=== PATIENT | female | born 1960 | race American Indian/Alaskan Native ===

== ENCOUNTER 2021-10-14 12:02 | Observation (INO) | payer OTHER ==
--- NOTE | 2021-10-14 16:02 | Event Note ---
ED Screening Note Date of service: 10/14/21 Time: 16:00 ED Screening Note: 61-year-old -Faroese female with end-stage renal disease states that she missed dialysis 3 times. Patient states she was exposed to Covid and was not allowed to get dialysis eyes. Patient states that she is vaccinated. Patient denies any chest pain no shortness of breath a slight cough no fever no chills no body aches nausea or vomiting. This initial assessment/diagnostic orders/clinical plan/treatment(s) is/are subject to change based on patients health status, clinical progression and re- assessment by fellow clinical providers in the ED. Further treatment and workup at subsequent clinical providers discretion. Patient/guardian urged not to elope from the ED as their condition may be serious if not clinically assessed and managed. Initial orders include: CBC CMP
[2021-10-14 16:06] LABS: Basophils # (Auto) 0.1 K/mm3 (0.0-0.1); Basophils % (Auto) 1.2 % (0.0-1.8); Eosinophils # (Auto) 0.2 K/mm3 (0.0-0.4); Eosinophils % (Auto) 2.9 % (0.0-4.3); Hematocrit 32.1 % (30.3-42.9); Hemoglobin 10.2 gm/dl (10.1-14.3); Lymphocytes % (Auto) 31.7 % (13.4-35.0); Mean Corpuscular HGB Conc 32 % (30-34); Mean Corpuscular Volume 98 fl (79-97); Monocytes # (Auto) 0.6 K/mm3 (0.0-0.8); Monocytes % (Auto) 10.4 % (0.0-7.3); Platelet Count 327 K/mm3 (140-440); Red Blood Count 3.29 M/mm3 (3.65-5.03)
[2021-10-14 16:17] LABS: Calcium 9.3 mg/dL (8.4-10.2)
[2021-10-14] MEDS ORDERED: INSULIN REGULAR, HUMAN 100 UNITS/1 ML IV ONE (17:24)
[2021-10-14] MEDS ORDERED: DEXTROSE 50% IN WATER (25GM) 50 ML SYRINGE IV ONE (17:25)
--- NOTE | 2021-10-14 17:32 | Emergency Department Report ---
HPI - General Chief Complaint: Weakness Time Seen by Provider: 10/14/21 15:21 - HPI HPI: 61-year-old female with history of hypertension, ESRD on HD M/W/F, HIV on antiretroviral therapy, and diabetes mellitus mellitus presents saying that she needs dialysis. The patient says that she has missed her last 3 dialysis sessions and her last hemodialysis was on Thursday of last week. She says she was exposed to her neighbor who tested positive for Covid and for this reason was told that she could not come into the dialysis clinic until she obtained a negative test. She says she has been unable to obtain a COVID-19 test. She denies any symptoms. She does say that since her last dialysis session she has had significantly increased lower extremity swelling. She denies any associated headache, visual change, fever, shortness of breath, chest pain, abdominal pain, nausea/vomiting, or any other complaints. She is fully vaccinated against COVID-19. ED Past Medical Hx - Past Medical History Previous Medical History?: Yes Hx Hypertension: Yes Hx Diabetes: Yes Hx Renal Disease: Yes (ESRD on HD M/W/) Hx HIV: Yes - Surgical History Additional Surgical History: LUE fistula ED Review of Systems ROS: Stated complaint: DIALYSIS Other details as noted in HPI Constitutional: denies: chills, fever Eyes: denies: eye pain, vision change ENT: denies: throat pain, congestion Respiratory: denies: cough, shortness of breath Cardiovascular: edema. denies: chest pain, palpitations Gastrointestinal: denies: abdominal pain, nausea, vomiting Genitourinary: denies: dysuria, frequency Musculoskeletal: denies: back pain, arthralgia Skin: denies: rash, lesions Neurological: denies: headache, weakness, numbness Psychiatric: denies: anxiety, depression Physical Exam - Physical Exam Vital Signs: Vital Signs 10/14/21 14:41 Temperature 98 F Pulse Rate 63 Respiratory 16 Rate Blood Pressure 164/61 [Left] O2 Sat by Pulse 100 Oximetry Physical Exam: GENERAL: Well developed and well nourished. No acute distress HEAD: Normocephalic. No obvious signs of trauma. ENT: Dry mucous membranes. EYES: Extraocular movements are intact. Pupils are equal round and reactive to light bilaterally NECK: Supple. Full ROM is intact. Trachea is midline. LUNGS: Nonlabored breathing. Equal chest rise bilaterally. Coarse breath sounds throughout. CARDIOVASCULAR: Regular rate and rhythm. No murmurs or rubs. VASCULAR: Cap refill < 2 seconds. Left upper extremity fistula with bruit/thrill. 2+ pitting edema of the right lower extremity. 1+ pitting edema of the left lower extremity. ABDOMEN: Abdomen is soft and nondistended. There is no significant tenderness, guarding or rebound. SKIN: Skin is warm and dry NEURO: Patient is awake, alert, and oriented. candle pourer II-XII grossly intact. No focal deficits. Normal motor and sensory exam throughout. Normal speech. MUSCULOSKELETAL: No obvious deformities. No significant tenderness. Normal ROM throughout. BACK/SPINE: No midline tenderness or step-offs of the C/T/L spine. No costover tebral angle tenderness. ED Course Vital Signs 10/14/21 14:41 Temperature 98 F Pulse Rate 63 Respiratory 16 Rate Blood Pressure 164/61 [Left] O2 Sat by Pulse 100 Oximetry ED Medical Decision Making - Lab Data Result diagrams: 10/14/21 15:40 10/14/21 15:40 Lab Results 10/14/21 10/14/21 10/14/21 Range/Units 15:40 15:40 15:40 WBC 6.2 (4.5-11.0) K/mm3 RBC 3.29 L (3.65-5.03) M/mm3 Hgb 10.2 (10.1-14.3) gm/dl Hct 32.1 (30.3-42.9) % MCV 98 H (79-97) fl MCH 31 (28-32) pg MCHC 32 (30-34) % RDW 25.0 H (13.2-15.2) % Plt Count 327 (140-440) K/mm3 Lymph % (Auto) 31.7 (13.4-35.0) % Mcintosh % (Auto) 10.4 H (0.0-7.3) % Eos % (Auto) 2.9 (0.0-4.3) % Baso % (Auto) 1.2 (0.0-1.8) % Lymph # (Auto) 2.0 (1.2-5.4) K/mm3 Mcintosh # (Auto) 0.6 (0.0-0.8) K/mm3 Eos # (Auto) 0.2 (0.0-0.4) K/mm3 Baso # (Auto) 0.1 (0.0-0.1) K/mm3 Seg Neutrophils % 53.8 (40.0-70.0) % Seg Neutrophils # 3.3 (1.8-7.7) K/mm3 PT (12.2-14.9) Sec. INR (0.87-1.13) APTT (24.2-36.6) Sec. Sodium 141 (137-145) mmol/L Potassium 5.9 H (3.6-5.0) mmol/L Chloride 105.2 (98-107) mmol/L Carbon Dioxide 23 (22-30) mmol/L Anion Gap 19 mmol/L BUN 62 H (7-17) mg/dL Creatinine 6.1 H (0.6-1.2) mg/dL Estimated GFR 8 ml/min BUN/Creatinine Ratio 10 % Glucose 95 (65-100) mg/dL Calcium 9.3 (8.4-10.2) mg/dL Magnesium 3.40 H (1.7-2.3) mg/dL 12// Range/Units Unknown WBC (4.5-11.0) K/mm3 RBC (3.65-5.03) M/mm3 Hgb (10.1-14.3) gm/dl Hct (30.3-42.9) % MCV (79-97) fl MCH (28-32) pg MCHC (30-34) % RDW (13.2-15.2) % Plt Count (140-440) K/mm3 Lymph % (Auto) (13.4-35.0) % Mcintosh % (Auto) (0.0-7.3) % Eos % (Auto) (0.0-4.3) % Baso % (Auto) (0.0-1.8) % Lymph # (Auto) (1.2-5.4) K/mm3 Mcintosh # (Auto) (0.0-0.8) K/mm3 Eos # (Auto) (0.0-0.4) K/mm3 Baso # (Auto) (0.0-0.1) K/mm3 Seg Neutrophils % (40.0-70.0) % Seg Neutrophils # (1.8-7.7) K/mm3 PT 13.9 (12.2-14.9) Sec. INR 0.96 (0.87-1.13) APTT 27.3 (24.2-36.6) Sec. Sodium (137-145) mmol/L Potassium (3.6-5.0) mmol/L Chloride (98-107) mmol/L Carbon Dioxide (22-30) mmol/L Anion Gap mmol/L BUN (7-17) mg/dL Creatinine (0.6-1.2) mg/dL Estimated GFR ml/min BUN/Creatinine Ratio % Glucose (65-100) mg/dL Calcium (8.4-10.2) mg/dL Magnesium (1.7-2.3) mg/dL - EKG Data -: EKG Interpreted by Me - EKG Data 10/14/21 18:40 Normal sinus rhythm. Normal axis. Normal intervals. No ectopy. No significant ST segment or T wave abnormalities. - Radiology Data Radiology results: report reviewed - Medical Decision Making 61-year-old female multiple medical comorbidities including ESRD on HD presents after 3 missed dialysis sessions. She reports lower extremity swelling. Her last dialysis was 6 days ago. She is afebrile with normal vital signs other than elevated blood pressure. Lungs are clear to auscultation but she does have lower extremity swelling. Labs were drawn in triage and reveal expectedly eleva ash creatinine of 6.1 with BUN of 62. However, there is hyperkalemia with a potassium of 5.9. There is no significant leukocytosis or anemia. Chest x-ray was performed and reveals no acute abnormalities. Given hyperkalemia in the setting of 3 missed dialysis sessions with volume overload, I have placed a call to [facility] immediately given that the patient needs urgent/emergent dialysis. In the meantime I have asked for an EKG stat and ordered treatment for hyperkalemia with calcium gluconate and 10 units of insulin with 1 amp of D50. At 5:37 PM I spoke with Dr. Romeo from [facility] regarding the patient and the case. She says that they do not have beds available and she recommends admitting the patient and managing the patient here at our facility. I have placed an emergent consult for nephrology. I spoke with Dr. Ibrahim of nephrology regarding the case. He agrees that the patient needs dialysis and will place orders. We will plan to meet the patient to medicine for further management. All this was discussed with the patient expressed understanding and agreement with the plan of care. Critical Care Time: Yes Critical care time in (mins) excluding proc time.: 35 Critical care attestation.: If time is entered above; I have spent that time in minutes in the direct care of this critically ill patient, excluding procedure time. Critical care time was spent in the evaluation/assessment, work-up, and ma nagement of end-stage renal disease with volume overload and hyperkalemia requiring administration of IV calcium as well as IV insulin, and consultation with specialist as well as urgent dialysis and frequent reevaluation and reassessment. ED Disposition Clinical Impression: ESRD (end stage renal disease) on dialysis, Hyperkalemia, Hypertension Disposition: 09 ADMITTED INPATIENT Is pt being admited?: Yes Condition: Serious
--- NOTE | 2021-10-14 17:45 | XRay Report ---
XR chest 1V ap INDICATION / CLINICAL INFORMATION: missed HD COMPARISON: 10/11/2012 FINDINGS: SUPPORT DEVICES: None. HEART / MEDIASTINUM: No significant abnormality. LUNGS / PLEURA: Lungs are clear. Costophrenic sulci are sharp. No pneumothorax. ADDITIONAL FINDINGS: No significant additional findings. IMPRESSION: 1. No acute findings. Signer Name: Mike Lino MD Signed: 10/14/2021 5:41 PM Workstation Name: [id number]
[2021-10-14 18:01] LABS: INR 0.96 (0.87-1.13)
[2021-10-14 18:02] LABS: Partial Thromboplastin Time 27.3 Sec. (24.2-36.6)
[2021-10-14] MEDS ORDERED: SODIUM CHLORIDE 0.9% 100 ML IV PRN (18:08)
[2021-10-14] MEDS ORDERED: EPOETIN ALFA-EPBX 10,000 UNIT/1 ML VIAL IV PRN (18:08)
--- NOTE | 2021-10-14 18:11 | Consultation ---
History of Present Illness - Reason for Consult Consult date: 11/14/21 end stage renal disease Requesting physician: VIVIANA BUCIO - History of Present Illness Patien was discharged before I could see her and evaluate her in person Medications and Allergies Allergies Allergy/AdvReac Type Severity Reaction Status Date / Time lisinopril Allergy Unknown Verified 10/14/21 14:41 Active Meds: Active Medications Calcium Gluconate 2,000 mg/ (Sodium Chloride) 120 mls @ 660 mls/hr IV ONCE ONE Stop: 10/14/21 18:34 Sodium Chloride (Nacl 0.9%) 100 mls @ 999 mls/hr IV ANETTE PRN PRN Reason: Hypotension Exam - Vital Signs Vital signs: Vital Signs Temp Pulse Resp BP Pulse Ox 98 F 63 16 164/61 100 10/14/21 14:41 10/14/21 14:41 10/14/21 14:41 10/14/21 14:41 10/14/21 14:41 Results - Lab Results 10/15/21 04:54 10/15/21 04:54 Most recent lab results Calcium 9.3 mg/dL (8.4-10.2) 10/14/21 15:40 Magnesium 3.40 mg/dL (1.7-2.3) H 10/14/21 15:40
[2021-10-14] MEDS ORDERED: CALCIUM GLUCONATE 2,000 MG in SODIUM CHLORIDE 0.9% 100 ML IV ONE (18:24)
[2021-10-14 19:13] LABS: Hepatitis C Virus Antibody Non-Reactive (NonReactive)
[2021-10-14 19:17] LABS: Hepatitis B Surface Antigen Nonreactive (Negative)
--- NOTE | 2021-10-14 21:46 | History and Physical Report ---
History of Present Illness Date of examination: 10/14/21 Date of admission: 10/14/2021 Chief complaint: Missed hemodialysis for 1 week History of present illness: 61-year-old female with history of hypertension, ESRD on HD M/W/F, HIV on antiretroviral therapy, and diabetes mellitus mellitus presents saying that she needs dialysis. The patient says that she has missed her last 3 dialysis sessions and her last hemodialysis was on Thursday of last week. She says she was exposed to her neighbor who tested positive for Covid and for this reason was told that she could not come into the dialysis clinic until she obtained a negative test. She says she has been unable to obtain a COVID-19 test. She denies any symptoms. She does say that since her last dialysis session she has had significantly increased lower extremity swelling. She denies any associated headache, visual change, fever, shortness of breath, chest pain, abdominal pain, nausea/vomiting, or any other complaints. She is fully vaccinated against COVID-19. - Past Medical History Previous Medical History?: Yes --Hypertension: Yes --Diabetes: Yes --Renal Disease: Yes (ESRD on HD M/W/) --HIV: Yes - Surgical History -- LUE fistula --Family history Htn -Social history --No smoking or alcohol Review of Systems ROS: Stated complaint: DIALYSIS Other details as noted in HPI Constitutional: denies: chills, fever Eyes: denies: eye pain, vision change ENT: denies: throat pain, congestion Respiratory: denies: cough, shortness of breath Cardiovascular: edema. denies: chest pain, palpitations Gastrointestinal: denies: abdominal pain, nausea, vomiting Genitourinary: denies: dysuria, frequency Musculoskeletal: denies: back pain, arthralgia Skin: denies: rash, lesions Neurological: denies: headache, weakness, numbness Psychiatric: denies: anxiety, depression Medications and Allergies Allergies Allergy/AdvReac Type Severity Reaction Status Date / Time lisinopril Allergy Unknown Verified 10/14/21 14:41 Active Meds: Active Medications Sodium Chloride (Nacl 0.9%) 100 mls @ 999 mls/hr IV ANETTE PRN PRN Reason: Hypotension Exam - Constitutional Vitals: Temp Pulse Resp BP Pulse Ox 98 F 63 16 164/61 100 10/14/21 14:41 10/14/21 14:41 10/14/21 14:41 10/14/21 14:41 10/14/21 14:41 General appearance: Present: no acute distress, well-nourished - EENT Eyes: Present: PERRL ENT: hearing intact, clear oral mucosa - Neck Neck: Present: supple, normal ROM - Respiratory Respiratory effort: normal Respiratory: bilateral: CTA - Cardiovascular Heart rate: 78 Rhythm: regular Heart Sounds: Present: S1 & S2. Absent: rub, click - Extremities Extremities: pulses symmetrical, No edema Peripheral Pulses: within normal limits - Abdominal General gastrointestinal: Present: soft, non-tender, non-distended, normal bowel sounds Female genitourinary: Present: normal - Integumentary Integumentary: Present: clear, warm, dry - Musculoskeletal Musculoskeletal: gait normal, strength equal bilaterally - Psychiatric Psychiatric: appropriate mood/affect, intact judgment & insight - Neurologic Neurologic: CNII-XII intact, moves all extremities Results - Labs CBC & Chem 7: 10/15/21 04:54 10/15/21 04:54 Labs: Laboratory Last Values WBC 6.2 K/mm3 (4.5-11.0) 10/14/21 15:40 RBC 3.29 M/mm3 (3.65-5.03) L 10/14/21 15:40 Hgb 10.2 gm/dl (10.1-14.3) 10/14/21 15:40 Hct 32.1 % (30.3-42.9) 10/14/21 15:40 MCV 98 fl (79-97) H 10/14/21 15:40 MCH 31 pg (28-32) 10/14/21 15:40 MCHC 32 % (30-34) 10/14/21 15:40 RDW 25.0 % (13.2-15.2) H 10/14/21 15:40 Plt Count 327 K/mm3 (140-440) 10/14/21 15:40 Lymph % (Auto) 31.7 % (13.4-35.0) 10/14/21 15:40 Bremer % (Auto) 10.4 % (0.0-7.3) H 10/14/21 15:40 Eos % (Auto) 2.9 % (0.0-4.3) 10/14/21 15:40 Baso % (Auto) 1.2 % (0.0-1.8) 10/14/21 15:40 Lymph # (Auto) 2.0 K/mm3 (1.2-5.4) 10/14/21 15:40 Bremer # (Auto) 0.6 K/mm3 (0.0-0.8) 10/14/21 15:40 Eos # (Auto) 0.2 K/mm3 (0.0-0.4) 10/14/21 15:40 Baso # (Auto) 0.1 K/mm3 (0.0-0.1) 10/14/21 15:40 Seg Neutrophils % 53.8 % (40.0-70.0) 10/14/21 15:40 Seg Neutrophils # 3.3 K/mm3 (1.8-7.7) 10/14/21 15:40 PT 13.9 Sec. (12.2-14.9) 10/14/21 Unknown INR 0.96 (0.87-1.13) 10/14/21 Unknown APTT 27.3 Sec. (24.2-36.6) 10/14/21 Unknown Sodium 141 mmol/L (137-145) 10/14/21 15:40 Potassium 5.9 mmol/L (3.6-5.0) H 10/14/21 15:40 Chloride 105.2 mmol/L (98-107) 10/14/21 15:40 Carbon Dioxide 23 mmol/L (22-30) 10/14/21 15:40 Anion Gap 19 mmol/L 10/14/21 15:40 BUN 62 mg/dL (7-17) H 10/14/21 15:40 Creatinine 6.1 mg/dL (0.6-1.2) H 10/14/21 15:40 Estimated GFR 8 ml/min 10/14/21 15:40 BUN/Creatinine Ratio 10 % 10/14/21 15:40 Glucose 95 mg/dL (65-100) 10/14/21 15:40 Calcium 9.3 mg/dL (8.4-10.2) 10/14/21 15:40 Magnesium 3.40 mg/dL (1.7-2.3) H 10/14/21 15:40 Hepatitis A IgM Ab Non-reactive (NonReactive) 10/14/21 18:34 Hep Bs Antigen Nonreactive (Negative) 10/14/21 18:34 Hep B Core IgM Ab Non-reactive (NonReactive) 10/14/21 18:34 Hepatitis C Antibody Non-reactive (NonReactive) 10/14/21 18:34 Short CBC 10/14/21 10/15/21 Range/Units 15:40 04:54 WBC 6.2 5.3 (4.5-11.0) K/mm3 Hgb 10.2 10.6 (10.1-14.3) gm/dl Hct 32.1 33.0 (30.3-42.9) % Plt Count 327 309 (140-440) K/mm3 BMP 10/14/21 10/15/21 15:40 04:54 Sodium 141 139 Potassium 5.9 H 4.2 D Chloride 105.2 99.7 Carbon Dioxide 23 26 BUN 62 H 30 H Creatinine 6.1 H 3.8 H Glucose 95 108 H Calcium 9.3 8.7 Assessment and Plan Advance Directives: Yes (Full code) VTE prophylaxis?: Chemical Plan of care discussed with patient/family: Yes - Patient Problems (1) Volume overload Current Visit: Yes Status: Acute Plan to address problem: Patient has missed three dialysis sessions Needs emergent hemodialysis for increased volume removal and increased ultrafiltration Nephrology consulted (2) ESRD (end stage renal disease) on dialysis Current Visit: Yes Status: Chronic Plan to address problem: Continue hemodialysis as per schedule with one emergent hemodialysis today (3) Hyperkalemia Current Visit: Yes Status: Acute Plan to address problem: Patient to get emergent hemodialysis Patient also given D50 W insulin and calcium gluconate (4) Hypertension Current Visit: Yes Status: Chronic Qualifiers: Hypertension type: primary hypertension Qualified Code(s): I10 - Essential (primary) hypertension Plan to address problem: Continue antihypertensives and adjust medications (5) T2DM (type 2 diabetes mellitus) Current Visit: Yes Status: Chronic Qualifiers: Diabetes mellitus custodial insulin use: unspecified custodial insulin use status Plan to address problem: Coverage for now (6) DVT prophylaxis Current Visit: Yes Status: Acute Plan to address problem: Heparin and GI prophylaxis
[2021-10-14] MEDS ORDERED: ONDANSETRON 4 MG/2 ML INJ IV PRN (21:47)
[2021-10-14] MEDS ORDERED: METOCLOPRAMIDE 10 MG/2 ML INJ IV PRN (21:47)
[2021-10-14] MEDS ORDERED: oxyCODONE /ACETAMINOPHEN 5-325MG TAB PO PRN (21:47)
[2021-10-14] MEDS ORDERED: ACETAMINOPHEN 325 MG TAB PO PRN (21:47)
[2021-10-14] MEDS ORDERED: MORPHINE 2 MG/1 ML INJ IV PRN (21:47)
[2021-10-14] MEDS ORDERED: HEPARIN 5,000 UNIT/1 ML VIAL SUB-Q SCH (22:00)
[2021-10-15 05:37] LABS: Basophils # (Auto) 0.1 K/mm3 (0.0-0.1); Eosinophils # (Auto) 0.2 K/mm3 (0.0-0.4); Eosinophils % (Auto) 2.9 % (0.0-4.3); Hemoglobin 10.6 gm/dl (10.1-14.3); Lymphocytes # (Auto) 1.9 K/mm3 (1.2-5.4); Lymphocytes % (Auto) 35.7 % (13.4-35.0); Mean Corpuscular HGB Conc 32 % (30-34); Mean Corpuscular Volume 98 fl (79-97); Monocytes # (Auto) 0.5 K/mm3 (0.0-0.8); Monocytes % (Auto) 10.3 % (0.0-7.3); Platelet Count 309 K/mm3 (140-440); Red Blood Count 3.38 M/mm3 (3.65-5.03)
[2021-10-15 05:38] LABS: Red Cell Distribution Width 23.7 % (13.2-15.2)
[2021-10-15 05:52] LABS: Calcium 8.7 mg/dL (8.4-10.2)
[2021-10-15 07:28] VITALS: BP 150/59
--- NOTE | 2021-10-15 09:42 | Electrocardiograph Report ---
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
--- NOTE | 2021-10-15 11:16 | Discharge Summary ---
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 The patient says that she has missed her last 3 dialysis sessions and her last hemodialysis was on Thursday of last week. She says she was exposed to her neighbor who tested positive for Covid and for this reason was told that she could not come into the dialysis clinic until she obtained a negative test. She says she has been unable to obtain a COVID-19 test. She denies any symptoms. She does say that since her last dialysis session she has had significantly increased lower extremity swelling. She denies any associated headache, visual change, fever, shortness of breath, chest pain, abdominal pain, nausea/vomiting, or any other complaints. She is fully vaccinated against COVID-19. - Patient Problems (1) Volume overload Current Visit: Yes Status: Acute Plan to address problem: Patient on hemodialysis and feels better (2) ESRD (end stage renal disease) on dialysis Current Visit: Yes Status: Chronic Plan to address problem: Continue hemodialysis as per schedule with one emergent hemodialysis today Patient counseled about compliance (3) Hyperkalemia Current Visit: Yes Status: Acute Plan to address problem: Hyperkalemia is corrected (4) Hypertension Current Visit: Yes Status: Chronic Qualifiers: Hypertension type: primary hypertension Qualified Code(s): I10 - Essential (primary) hypertension Plan to address problem: Continue antihypertensives and adjust medications (5) T2DM (type 2 diabetes mellitus) Current Visit: Yes Status: Chronic Qualifiers: Diabetes mellitus skilled nursing insulin use: unspecified skilled nursing insulin use status Plan to address problem: Continue home medications Disposition: HOME / SELF CARE / HOMELESS Final Discharge Diagnosis (Prints w/discharge instructions): Hyperkalemia. Volume overload. End-stage renal disease on hemodialysis. Hypertension. 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 (6) DVT prophylaxis Status: Acute Core Measure Documentation - Palliative Care Palliative Care/ Comfort Measures: Not Applicable - Core Measures Any of the following diagnoses?: none Exam - Constitutional Vitals: Temp Pulse Resp BP Pulse Ox 98.2 F 62 10 L 150/59 99 10/14/21 22:50 10/15/21 06:45 10/15/21 06:45 10/15/21 06:45 10/15/21 06:45 General appearance: Present: no acute distress, well-nourished - EENT Eyes: Present: PERRL ENT: hearing intact, clear oral mucosa - Neck Neck: Present: supple, normal ROM - Respiratory Respiratory effort: normal Respiratory: bilateral: CTA - Cardiovascular Heart Sounds: Present: S1 & S2. Absent: rub, click - Extremities Extremities: no ischemia, pulses symmetrical, No edema Peripheral Pulses: within normal limits - Abdominal General gastrointestinal: Present: soft, non-tender, non-distended, normal bowel sounds Female genitourinary: Present: normal - Integumentary Integumentary: Present: clear, warm, dry - Musculoskeletal Musculoskeletal: gait normal, strength equal bilaterally - Psychiatric Psychiatric: appropriate mood/affect, intact judgment & insight - Neurologic Neurologic: CNII-XII intact, moves all extremities - Allied Health Allied health notes reviewed: nursing, case management Plan Activity: no restrictions Diet: renal Follow up with: PRIMARY MD CK [Primary Care Provider] - 3-5 Days
== END 2021-10-15 08:54 | disposition home or self-care (01) ==
LOC: ED 12:02 → 3A 21:47
PROVIDERS: ADMIT Internal Medicine; ATTEND Internal Medicine
DX: E87.70 Fluid overload, unspecified (principal); I12.0 Hypertensive chronic kidney disease with stage 5 chronic kidney disease or end stage renal disease; N18.6 End stage renal disease; E11.22 Type 2 diabetes mellitus with diabetic chronic kidney disease; E87.5 Hyperkalemia; Z21 Asymptomatic human immunodeficiency virus [HIV] infection status; Z79.899 Other long term (current) drug therapy; Z98.890 Other specified postprocedural states; Z99.2 Dependence on renal dialysis
CPT/HCPCS: 36415; 71045; 80048; 80074; 83735; 85025; 85610; 85730; 93005; 96372; 99291; G0257; G0378; J0610; J1644